=== PATIENT | female | born 1975 | race Caucasian/White ===

== ENCOUNTER 2020-05-03 18:24 | Outpatient (NON) | payer OTHER, SELFPAY | END 2020-05-03 18:25 | LOC: ANHLAB 18:25 | PROVIDERS: PCP Family Medicine; Visit Provider Nurse Practitioner | DX: L02.91 Cutaneous abscess, unspecified (principal) | CPT/HCPCS: 87070; 87075; 87076; 87185; 87205 ==

== ENCOUNTER → 2020-07-16 08:40 | Outpatient (CLI) | payer OTHER, SELFPAY ==
--- NOTE | ~2020-07-16 | US_ITS ---
US pelvic complete w TV DATE: 07/16/2020 09:12 INDICATION: Pelvic and perineal pain. TECHNIQUE: Real-time imaging via transabdominal and transvaginal approaches COMPARISON: 01/30/2019 transvaginal ultrasound FINDINGS: The uterus measures 8 cm height, up to 4.5 cm anteroposterior dimension. The central endome trial echo complex measures 9 mm AP dimension. There is an approximately 1.3 x 1.4 cm uterine fibroid. The ovaries measure 2.9 x 2.1 x 2.2 cm on the right and 2.2 x 2 x 2.1 cm on the left, with vascular f low. No abnormal pelvic fluid collection is detected. IMPRESSION: 1.4 cm uterine fibroid Normal uterine size; central endometrial echo measures 9 mm AP dimension Reviewed, dictated and finalized at [facility] Reviewed, dictated and finalized at [facility].
== END ==
PROVIDERS: Visit Provider Student in an Organized Health Care Education/Training Program
DX: R10.2 Pelvic and perineal pain (principal); D25.9 Leiomyoma of uterus, unspecified
CPT/HCPCS: 76830; 76856

== ENCOUNTER 2021-10-23 02:40 | Day surgery (SDC) | payer OTHER, SELFPAY ==
[2021-10-05 09:17] VITALS: BMI 34.5
--- NOTE | 2021-10-20 13:44 | PM.HPGS ---
History of Present Illness History of Present Illness Consent: Risks, benefits, and alternatives have been discussed and questions answered. Patient agrees to proceed with procedure. Chief complaint: neoplasm screening Narrative: Vannesa Marie is a 45 year old female referred for colon cancer sscreening Review of Systems Review of Systems: All systems reviewed & are unremarkable except as noted in HPI and below PMFSH Past Medical History Medical History Anemia BMI 37.0-37.9, adult Body mass index [BMI] 36.0-36.9, adult (01/27/19) Elevated lipids Encounter for gynecological examination (general) (routine) without abnormal findings Homozygous for MTHFR gene mutation Menorrhagia with regular cycle PCOS (polycystic ovarian syndrome) Screening mammogram, encounter for Vaginal delivery 03/08/2007 Surgical History Surgical History Delivery by section 11/19/2010 H/O sinus surgery History of History of tonsillectomy [place] teeth removed Family History Family History Mother Diabetes mellitus Family history of hypercholesterolemia Father Hypertension, Onset Age: 55 Sibling , heart No problems noted. 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 Gender identity (if verbalized by the patient): Female Spiritual care concerns: No Meds Home Medications and Allergies Home Medications Medication Instructions Recorded Confirmed Type multivitamin (Daily Multi-Vitamin 1 tablet PO DAILY 05/31/20 10/23/21 History tablet) semaglutide (weight loss) 1 mg/0.5 1 mg (0.5 mL) subcut WEEKLY #2 mL 09/29/21 10/23/21 Rx mL subcutaneous pen injector (Wegovy) Allergies Allergy/AdvReac Type Severity Reaction Status Date / Time No Known Allergies Allergy Verified 10/23/21 08:44 Exam Resp: Auscultation: clear to auscultation bilaterally Cardio: Rate: regular rate Rhythm: regular rhythm GI: GI Palp: Yes Soft to palpation and No Tenderness to palpation present (GI) Assessment and Plan Assessment and plan (1) Screening for malignant neoplasm of colon: Code(s): Z12.11 - Encounter for screening for malignant neoplasm of colon Status: Acute Assessment and Plan: Colonoscopy with possible biopsy or polypectomy or cautery or injection of substances.
[2021-10-23 08:45] VITALS: BP 130/73; PULSE 83; RESP 16; TEMP 36.1; O2SAT 99; BMI 35.9
[2021-10-23] MEDS: LACTATED RINGERS 1,000 ML 150 ML IV CONT (08:57)
--- NOTE | 2021-10-23 09:42 | WPDANESEPPF ---
Anes - Initial Pre Proc Eval Procedure: Operation Date: 10/23/21 09:30 Proposed Procedures p Screening Colonoscopy - Chapo Clements MD Date/Time: 10/23/21 09:42 Surgeon: Chapo Clements MD Pre Op Diagnosis: neoplasm screening Patient Data Age: 45 Gender: F Height: 1.7 m Weight: 103.9 kg Last Vital Signs Temp 97.0 F L 10/23/21 08:45 Pulse 83 10/23/21 08:45 Resp 16 10/23/21 08:45 BP 130/73 10/23/21 08:45 Pulse Ox 99 10/23/21 08:45 O2 Del Method Room Air 10/23/21 08:45 Allergies Allergy/AdvReac Type Severity Reaction Status Date / Time No Known Allergies Allergy Verified 10/23/21 08:44 Home Medications Medication Instructions Recorded Confirmed Type multivitamin (Daily Multi-Vitamin 1 tablet PO DAILY 05/31/20 10/23/21 History tablet) semaglutide (weight loss) 1 mg/0.5 1 mg (0.5 mL) subcut WEEKLY #2 mL 09/29/21 10/23/21 Rx mL subcutaneous pen injector (Wegovy) Patient hx anesthesia problems: none Family hx anesthesia problems: none Results Review: All pre-operative results and documents have been reviewed as part of the pre-operative evaluation. [facility] Past Medical History Medical History (Updated 08/28/21 @ 09:28 by Estrellita Staley NP) Anemia BMI 37.0-37.9, adult Body mass index [BMI] 36.0-36.9, adult (01/27/19) Elevated lipids Encounter for gynecological examination (general) (routine) without abnormal findings Homozygous for MTHFR gene mutation Menorrhagia with regular cycle PCOS (polycystic ovarian syndrome) Screening mammogram, encounter for Vaginal delivery 03/08/2007 Surgical History Surgical History Delivery by section 11/19/2010 H/O sinus surgery History of History of tonsillectomy [place] teeth removed Family History Family History Mother Diabetes mellitus Family history of hypercholesterolemia Father Hypertension, Onset Age: 55 Sibling , heart No problems noted. 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 Informed Consent: The patient's anesthetic plan and its attendant risks and benefits were discussed with the patient/family/POA. Questions were solicited and answers provided to the satisfaction of the patient/family/POA.
[2021-10-23 09:55] VITALS: BP 112/68; PULSE 75; RESP 18; O2SAT 97
[2021-10-23 10:05] VITALS: BP 112/68; PULSE 78; RESP 13; O2SAT 100
[2021-10-23] MEDS: ONDANSETRON INJ 4 MG/2 ML VIAL IV PUSH (10:05)
[2021-10-23 10:15] VITALS: BP 120/75; PULSE 71; RESP 15; O2SAT 100
== END 2021-10-23 10:20 | disposition home or self-care (01) ==
PROVIDERS: PCP Family Medicine; Visit Provider Internal Medicine Gastroenterology
PROC: 0DJD8ZZ Inspection of Lower Intestinal Tract, Via Natural or Artificial Opening Endoscopic (ICD-10-PCS; CPT 45378; principal; 2021-10-23 09:30)
DX: Z12.11 Encounter for screening for malignant neoplasm of colon (principal); K63.89 Other specified diseases of intestine; E72.12 Methylenetetrahydrofolate reductase deficiency; E28.2 Polycystic ovarian syndrome; D64.9 Anemia, unspecified; Z87.891 Personal history of nicotine dependence; F12.90 Cannabis use, unspecified, uncomplicated; E66.9 Obesity, unspecified; Z68.35 Body mass index [BMI] 35.0-35.9, adult
CPT/HCPCS: 45378; J2001; J2405; J2704; J7120